=== PATIENT | male | born 1950 | race Caucasian/White ===

== ENCOUNTER 2019-03-17 10:53 | Emergency (ER) | payer MEDICARE, OTHER ==
[2019-03-17] MEDS ORDERED: Sodium Chloride 0.9% 10 ML Syringe FLUSH ONE (11:18)
[2019-03-17] MEDS ORDERED: Iohexol 647 MG/ML 100 ML Bottle IVPUSH ONE (11:18)
[2019-03-17] MEDS ORDERED: Sodium Chloride 0.9% 1,000 ML IV SCH (11:30)
[2019-03-17] MEDS ORDERED: Diphtheria,Pertussis(Acell),Tetanus Vaccine 0.5 ML Syringe IM ONE (11:42)
--- NOTE | 2019-03-17 11:44 | EDM.PDOC ---
ED HPI GENERAL MEDICAL PROBLEM - General Chief Complaint: Trauma Stated Complaint: L ELBOW INJURY - FALL FROM A LADDER Time Seen by Provider: 03/17/19 10:53 - History of Present Illness INITIAL COMMENTS - FREE TEXT/NARRATIVE: 68-year-old male presents emergency room after falling from a ladder. Patient fell approximately 10 feet from a ladder landing on his left side. He did not hit his head other than he bumped the left side of his jaundice something and has a small skin laceration on the anterior chin. There was no loss of consciousness he has no headache. At the time of the fall he did have the wind knocked out of him and it took him a few minutes to recover from that following this she's had no chest pain or chest discomfort no breathing difficulties or shortness of breath. He has not developed any abdominal pain no nausea vomiting he has not voided blood. He has left elbow discomfort and swelling. He is unsure of his last tetanus shot. Patient is treated for hypertension hyperlipidemia he has a history of GERD he is unsure of his medications we are trying to get this from his primary physician. His last meal was last night. He did have coffee this morning. We were able to confirm his medications from his primary clinic. Left Elbow Pain Score (Numeric/FACES): 9 - Related Data Allergies Allergy/AdvReac Type Severity Reaction Status Date / Time No Known Allergies Allergy Verified 03/17/19 11:09 Home Meds: Home Meds Aspirin 81 mg PO DAILY 03/17/19 [History] Finasteride [Proscar] 5 mg PO DAILY 03/17/19 [History] Losartan/Hydrochlorothiazide [Hyzaar 50-12.5 Tablet] 1 each PO DAILY 03/17/19 [ History] Tamsulosin [Tamsulosin 24 Hr] 0.4 mg PO DAILY 03/17/19 [History] atorvaSTATin [Lipitor] 10 mg PO DAILY 03/17/19 [History] Past Medical History HEENT History: Reports: Impaired Vision Other HEENT History: wears glasses Cardiovascular History: Reports: Hypertension Gastrointestinal History: Reports: GERD - Past Surgical History GI Surgical History: Reports: Colonoscopy Social & Family History - Tobacco Use Smoking Status *Q: Former Smoker Used Tobacco, but Quit: Yes Month/Year Tobacco Last Used: 1972 - Caffeine Use Caffeine Use: Reports: Coffee, Soda - Recreational Drug Use Recreational Drug Use: No Review of Systems - Review of Systems Review Of Systems: See Below Constitutional: Reports: No Symptoms Eyes: Reports: No Symptoms Ears: Reports: No Symptoms Nose: Reports: No Symptoms Mouth/Throat: Reports: No Symptoms Respiratory: Reports: No Symptoms, Other (Immediately after the fall he did have the wind knocked out of him to come couple minutes to recover from this) Cardiovascular: Reports: No Symptoms GI/Abdominal: Reports: No Symptoms Genitourinary: Reports: No Symptoms Musculoskeletal: Reports: Other (Left elbow pain no head or neck pain no chest wall pain) Skin: Reports: No Symptoms Neurological: Reports: No Symptoms Psychiatric: Reports: No Symptoms ED EXAM, GENERAL - Physical Exam Exam: See Below Exam Limited By: No Limitations General Appearance: Alert, No Apparent Distress, Other (He appears to have deformity of his left elbow otherwise he is in no acute distress vital signs stable blood pressures a little elevated) Eye Exam: Bilateral Eye: EOMI, Normal Inspection, PERRL Ears: Normal External Exam, Normal Canal, Hearing Grossly Normal, Normal TMs Nose: Normal Inspection, Normal Mucosa, No Blood Throat/Mouth: Normal Inspection, Normal Lips, Normal Teeth, Normal Gums, Normal Oropharynx, Normal Voice, No Airway Compromise Head: Other (No discomfort with palpation. He is a little sore the left side of his jaw no ecchymosis or swelling noted with this he has a very superficial laceration in the anterior chin) Neck: Normal Inspection, Supple, Non-Tender, Full Range of Motion, Other (No midline discomfort patient has normal range of motion). No: Lymphadenopathy (L) , Lymphadenopathy (R) Respiratory/Chest: No Respiratory Distress, Lungs Clear, Normal Breath Sounds, No Accessory Muscle Use, Chest Non-Tender, Other (Palpation the chest wall from multiple angles cannot elicit any discomfort) Cardiovascular: Regular Rate, Rhythm, No Edema, No Murmur GI/Abdominal: Normal Bowel Sounds, Soft, Non-Tender, No Organomegaly, No Distention, No Abnormal Bruit, No Mass, Pelvis Stable Back Exam: Normal Inspection, Full Range of Motion. No: CVA Tenderness (L), CVA Tenderness (R), Muscle Spasm, Paraspinal Tenderness, Vertebral Tenderness Extremities: Other (Right upper extremity both lower extremities entirely normal with palpation left upper extremity is very concerning for fracture at or about the elbow he has some swelling and externally looks like he might have some mild posterior displacement olecranon [place] very swollen) Neurological: Alert, Oriented, Normal Cognition, Other (He has some tingling in his left hand brief skeletal exam elsewhere is unrevealing normal muscle function and normal sensation) Psychiatric: Normal Affect, Normal Mood Skin Exam: Warm, Dry, Intact Lymphatic: No Adenopathy Course - Vital Signs Last Recorded V/S: Last Vital Signs Temp 36.3 C 03/17/19 11:00 Pulse 78 03/17/19 11:00 Resp 13 03/17/19 11:00 BP 167/97 H 03/17/19 11:00 Pulse Ox 98 03/17/19 11:00 - Orders/Labs/Meds Orders: Active Orders 24 hr Category Date Time Status Vaccines to be Administered [RC] PER UNIT ROUTINE Care 03/17/19 11:42 Active Elbow Min 3V Lt [CR] Stat Exams 03/17/19 11:13 Taken Humerus Lt [CR] Stat Exams 03/17/19 11:13 Taken Sodium Chloride 0.9% [Normal Saline] 1,000 ml Med 03/17/19 11:30 Active IV ASDIRECTED Medication Orders Sodium Chloride (Normal Saline) 1,000 mls @ 150 mls/hr IV ASDIRECTED APRYL Last Admin: 03/17/19 11:50 Dose: 150 mls/hr Labs: Laboratory Tests 03/17/19 03/17/19 03/17/19 Range/Units 11:15 11:15 11:20 WBC 7.57 (4.23-9.07) K/mm3 RBC 6.10 H (4.63-6.08) M/mm3 Hgb 17.7 H (13.7-17.5) gm/L Hct 52.4 H (40.1-51.0) % MCV 85.9 (79.0-92.2) fl MCH 29.0 (25.7-32.2) pg MCHC 33.8 (32.2-35.5) g/dl RDW Std Deviation 45.4 H (35.1-43.9) fL Plt Count 230 (163-337) K/mm3 MPV 9.6 (9.4-12.3) fl Neutrophils % (Manual) 69 H (40-60) % Band Neutrophils % 0 (0-10) % Lymphocytes % (Manual) 15 L (20-40) % Atypical Lymphs % 0 % Monocytes % (Manual) 9 (2-10) % Eosinophils % (Manual) 3 (0.8-7.0) % Basophils % (Manual) 4 H (0.2-1.2) Platelet Estimate Adequate Anisocytosis 1+ slight RBC Morph Comment Abnormal Sodium 139 (136-145) mEq/L Potassium 4.0 (3.5-5.1) mEq/L Chloride 101 (98-107) mEq/L Carbon Dioxide 25 (21-32) mEq/L Anion Gap 17.0 H (5-15) BUN 17 (7-18) mg/dL Creatinine 1.3 (0.7-1.3) mg/dL Est Cr Clr Drug Dosing 55.14 mL/min Estimated GFR (MDRD) 55 (>60) mL/min BUN/Creatinine Ratio 13.1 L (14-18) Glucose 118 H (80-115) mg/dL Calcium 9.3 (8.5-10.1) mg/dL Total Bilirubin 0.4 (0.2-1.0) mg/dL AST 29 (15-37) U/L ALT 49 (16-63) U/L Alkaline Phosphatase 80 (46-116) U/L Total Protein 7.9 (6.4-8.2) g/dl Albumin 4.4 (3.4-5.0) g/dl Globulin 3.5 gm/dL Albumin/Globulin Ratio 1.3 (1-2) Urine Color Light yellow (Yellow) Urine Appearance Clear (Clear) Urine pH 6.0 (5.0-8.0) Ur Specific [place] 1.020 (1.005-1.030) Urine Protein 2+ H (Negative) Urine Glucose (UA) Negative (Negative) Urine Ketones Negative (Negative) Urine Occult Blood Trace-intact H (Negative) Urine Nitrite Negative (Negative) Urine Bilirubin Negative (Negative) Urine Urobilinogen 0.2 (0.2-1.0) Ur Leukocyte Esterase Negative (Negative) Urine RBC 0-5 (0-5) /hpf Urine WBC 0-5 (0-5) /hpf Ur Epithelial Cells 0-5 (0-5) /hpf Urine Bacteria Few (FEW) /hpf Urine Mucus Few (FEW) /hpf Meds: Medications Generic Name Dose Route Start Last Admin Trade Name Freq PRN Reason Stop Dose Admin Sodium Chloride 1,000 mls @ 150 mls/hr 03/17/19 11:30 03/17/19 11:50 Normal Saline IV 150 mls/hr ASDIRECTED APRYL Administration Discontinued Medications Generic Name Dose Route Start Last Admin Trade Name Ermias PRN Reason Stop Dose Admin Diphtheria/Tetanus/Acell Pertussis 0.5 ml 03/17/19 11:42 03/17/19 11:52 Adacel IM 03/17/19 11:43 0.5 ml .ONCE ONE Administration Hydromorphone HCl 0.5 mg 03/17/19 12:22 03/17/19 12:32 Dilaudid IVPUSH 03/17/19 12:23 0.5 mg ONETIME ONE Administration Iohexol 100 ml 03/17/19 11:18 03/17/19 11:27 Omnipaque-300 IVPUSH 03/17/19 11:19 100 ml ONETIME ONE Administration Sodium Chloride 10 ml 03/17/19 11:18 03/17/19 11:27 Saline Flush FLUSH 03/17/19 11:19 10 ml ONETIME ONE Administration - Re-Assessments/Exams Free Text/Narrative Re-Assessment/Exam: 03/17/19 11:[address] Muniz electronic installer surgeon will proceed with trauma CTs 03/17/19 12:23 CT all look negative. X-rays confirm left elbow fracture the left olecranon has a mildly displaced comminuted fracture significant soft tissue swelling. Case discussed with Dr. Gordillo electronic installer orthopedics at [facility] in [place] who will accept the patient in transfer. Departure - Departure Time of Disposition: 12:26 Disposition: DC/Tfer to Acute Hospital 02 Clinical Impression: Fall from ladder, Closed fracture of left olecranon process - Discharge Information Referrals: Maurizio Trujillo MD [Primary Care Provider] - Forms: ED Department Discharge - My Orders Last 24 Hours: My Active Orders 03/17/19 11:13 Elbow Min 3V Lt [CR] Stat Humerus Lt [CR] Stat 03/17/19 11:30 Sodium Chloride 0.9% [Normal Saline] 1,000 ml IV ASDIRECTED 03/17/19 11:42 Vaccines to be Administered [RC] PER UNIT ROUTINE - Assessment/Plan Last 24 Hours: My Active Orders 03/17/19 11:13 Elbow Min 3V Lt [CR] Stat Humerus Lt [CR] Stat 03/17/19 11:30 Sodium Chloride 0.9% [Normal Saline] 1,000 ml IV ASDIRECTED 03/17/19 11:42 Vaccines to be Administered [RC] PER UNIT ROUTINE
--- NOTE | 2019-03-17 12:17 | CT ---
CT cervical spine Technique: Multiple axial sections were obtained from above C1 inferiorly through the bottom of T1. Reconstructed sagittal and coronal images were reviewed. Findings: Mild disc space narrowing is seen at C5-C6. Slight posterior osteophytes are noted at C2-C3 through C6-C7. Posterior osteophytes are most prominent at C5-C6. Mild degenerative uncovertebral change is also seen at C2-C3 through C7-T1. Mild bilateral neural foraminal stenosis is noted at C4-C5. Mild bilateral neural foraminal stenosis is noted at C3-C4. No bony central canal stenosis is seen. No subluxation or fracture is identified. Impression: 1. Mild diffuse degenerative change. 2. Nothing acute is appreciated on CT study of the cervical spine. Diagnostic code #2
[2019-03-17] MEDS ORDERED: HYDROmorphone 0.5 MG/0.5 ML Syringe IVPUSH ONE (12:22)
--- NOTE | 2019-03-17 12:23 | CT ---
CT chest Technique: Multiple axial sections were obtained from above the lung apices inferiorly through the lung bases. Intravenous contrast was utilized. Comparison: No prior chest imaging. Findings: Mild atherosclerotic calcification is seen within the thoracic aorta. Ascending aorta is mildly aneurysmal with AP dimension of 4.0 cm. Descending aorta at this level is 3.0 cm. Calcification also appears to be present within the aortic valve. Minimal coronary artery calcification is seen. No pericardial fluid or mediastinal abnormalities are seen. Small amount of normal fluid is seen within the superior pericardial recess. No axillary adenopathy is seen. Lung window settings were reviewed which show no acute parenchymal change. No pulmonary contusion is seen. No pleural effusions or pneumothorax is seen. Bone window settings were reviewed which show no vertebral body compression deformities on the reconstructed sagittal images. No discrete rib fracture is appreciated. Reconstructed coronal images showing the sternum appears intact. Impression: 1. Slightly aneurysmal ascending aorta is noted. Calcification appears to be present within the aortic valve as well as mild atherosclerotic calcification within the thoracic aorta and minimal coronary artery calcification. 2. Nothing acute is appreciated on CT study of the chest. Diagnostic code #3 CT abdomen and pelvis Technique: Multiple axial sections were obtained from above the dome of the diaphragm inferiorly through the pubic symphysis. Intravenous contrast was utilized. No oral contrast has been given. Comparison: No prior abdominal imaging. Findings: Liver contains no focal abnormality. Spleen appears within normal limits. Adrenal glands show no nodule. Kidneys show symmetric contrast enhancement without hydronephrosis or mass. Small low density finding is noted within the mid right kidney measuring about 6 mm in size which is too small to characterize by Hounsfield unit measurements but most likely represents a small cyst. Kidneys are otherwise unremarkable. Pancreas appears normal. Gallbladder contains no calcified gallstones. Abdominal aorta shows no aneurysm. Atherosclerotic calcification is seen within the aorta and iliac vessels. No retroperitoneal adenopathy is seen. No mesenteric abnormalities are identified. Appendix is seen and is normal in size. No pelvic mass or adenopathy is seen. Delayed images were obtained through the bladder which show contrast within the distal ureters and within the bladder with no contrast extravasation. Bone window settings were reviewed which show no compression deformity within the thoracic spine. No pelvic fracture or hip fracture is seen. Impression: 1. Incidental cyst within the right kidney. 2. Nothing acute is identified on CT study of the abdomen and pelvis. Diagnostic code #2
--- NOTE | 2019-03-17 12:23 | CT ---
Head CT Technique: Multiple axial sections were obtained through the brain. Intravenous contrast was not utilized. Comparison: No prior intracranial imaging. Findings: Ventricles along with basal cisterns and sulci over the convexities are within normal limits for the patient's age. No abnormal parenchymal densities are seen. No evidence of intracranial hemorrhage. No midline shift or mass effect is seen. Bone window settings were reviewed which show no acute calvarial abnormality. Small retention cyst is noted within the inferior right maxillary sinus measuring 1.2 cm. Minimal mucosal thickening is seen within both inferior maxillary sinuses. Impression: 1. Sinus findings which are chronic and incidental. 2. No acute intracranial abnormality is identified. Diagnostic code #2
--- NOTE | 2019-03-17 13:01 | CR ---
Left humerus: Two views of the left humerus were obtained. Comparison: No previous study. Olecranon process fracture is again partially seen. Humerus shows no discrete fracture or other abnormality. Impression: 1. Olecranon process fracture which is partially seen and better noted on subsequent elbow study. 2. Nothing acute seen within the left humerus. Diagnostic code #3
--- NOTE | 2019-03-17 13:01 | CR ---
Left elbow: Multiple views of the left elbow were obtained. Comminuted olecranon process fracture is seen with mild displacement. Soft tissue swelling is noted. No additional fracture or other abnormality is appreciated. Impression: 1. Comminuted and mildly displaced olecranon process fracture. 2. Soft tissue swelling. Diagnostic code #3
== END 2019-03-17 13:25 ==
LOC: JD.ED 10:53
DX: S52.022A Displaced fracture of olecranon process without intraarticular extension of left ulna, initial encounter for closed fracture (principal); I10 Essential (primary) hypertension; K21.9 Gastro-esophageal reflux disease without esophagitis; Z87.891 Personal history of nicotine dependence; Z79.82 Long term (current) use of aspirin; Z79.899 Other long term (current) drug therapy; W11.XXXA Fall on and from ladder, initial encounter
CPT/HCPCS: 29105; 36415; 70450; 71260; 72125; 73060; 73080; 74177; 80053; 81001; 85007; 85027; 90471; 90700; 96361; 96374; 99285; J1170; J7040; Q9967; 99284

== ENCOUNTER 2021-12-18 07:26 | Emergency (ER) | payer MEDICARE, OTHER | END 2021-12-18 12:15 | disposition home or self-care (01) | LOC: JD.ED 07:26 | DX: R07.89 Other chest pain (principal); I10 Essential (primary) hypertension; K21.9 Gastro-esophageal reflux disease without esophagitis; Z79.899 Other long term (current) drug therapy | CPT/HCPCS: 36415; 71045; 71045-26; 80053; 84484; 85025; 85610; 85730; 93005; 99285-25 ==

== ENCOUNTER 2022-11-25 16:30 | Emergency (ER) | payer MEDICARE, OTHER ==
[2022-11-25] MEDS ORDERED: Lidocaine 1% 10 ML MDV INJECT ONE (17:51)
[2022-11-25] MEDS ORDERED: Bupivacaine 0.5% 10 ML SDV INJECT ONE (17:51)
== END 2022-11-25 19:50 | disposition home or self-care (01) ==
LOC: JD.ED 16:30
DX: S61.112A Laceration without foreign body of left thumb with damage to nail, initial encounter (principal); I10 Essential (primary) hypertension; K21.9 Gastro-esophageal reflux disease without esophagitis; Z79.899 Other long term (current) drug therapy; Z79.01 Long term (current) use of anticoagulants; W27.0XXA Contact with workbench tool, initial encounter
CPT/HCPCS: 12004; 73140; 99283; J3490; 99284

== ENCOUNTER 2023-02-01 07:58 | Emergency (ER) | payer MEDICARE, OTHER | END 2023-02-01 09:01 | disposition home or self-care (01) | LOC: JD.ED 07:58 | DX: N39.0 Urinary tract infection, site not specified (principal); I10 Essential (primary) hypertension; N40.0 Benign prostatic hyperplasia without lower urinary tract symptoms; Z79.01 Long term (current) use of anticoagulants; Z79.82 Long term (current) use of aspirin; Z79.899 Other long term (current) drug therapy | CPT/HCPCS: 81001; 99283 ==

== ENCOUNTER 2023-02-08 23:12 | Emergency (ER) | payer MEDICARE, OTHER ==
[2023-02-09] MEDS ORDERED: Levofloxacin 750 MG Tab PO ONE ×2 (01:56→01:57)
== END 2023-02-09 02:25 | disposition home or self-care (01) ==
LOC: JD.ED 23:12
DX: N39.0 Urinary tract infection, site not specified (principal); Z79.82 Long term (current) use of aspirin; Z79.899 Other long term (current) drug therapy; Z79.01 Long term (current) use of anticoagulants
CPT/HCPCS: 36415; 80053; 81001; 85025; 87086; 87088; 87186; 99283; A9270

== ENCOUNTER 2024-05-07 09:38 | Emergency (ER) | payer MEDICARE, OTHER ==
[2024-05-07 10:40] LABS: APPEARANCE,URINE CLEAR (Clear); BILIRUBIN,URINE NEGATIVE (Negative); COLOR,URINE PINK (Yellow); GLUCOSE,URINE NEGATIVE (Negative); KETONES,URINE NEGATIVE (Negative); LEUKOCYTE ESTERASE,URINE 3+ (Negative); NITRITE,URINE NEGATIVE (Negative); OCCULT BLOOD,URINE 3+ (Negative); PROTEIN,URINE 1+ (Negative); UROBILINOGEN,URINE 0.2 (0.2-1.0)
[2024-05-07 11:01] LABS: BACTERIA,URINE FEW /hpf (FEW); MUCUS,URINE RARE /hpf (FEW); RBC,URINE 40-50 /hpf (0-5); SQUAMOUS EPITHELIAL CELLS,UR 0-5 /hpf (0-5); WBC,URINE 30-40 /hpf (0-5)
[2024-05-07] MEDS ORDERED: cefTRIAXone 1 GM Vial IM ONE (11:59)
[2024-05-07] MEDS: cefTRIAXone 1 GM, Lidocaine 1% 2.1 ML IM ONE (12:45)
== END 2024-05-07 12:51 | disposition home or self-care (01) ==
LOC: JD.ED 09:38
DX: N39.0 Urinary tract infection, site not specified (principal); R31.9 Hematuria, unspecified; I10 Essential (primary) hypertension; E78.00 Pure hypercholesterolemia, unspecified; K21.9 Gastro-esophageal reflux disease without esophagitis; Z79.82 Long term (current) use of aspirin; Z79.899 Other long term (current) drug therapy
CPT/HCPCS: 81001; 87086; 96372; 99283; J0696; J3490